=== PATIENT | male | born 1990 | race Hispanic/Latino ===

== ENCOUNTER 2018-10-27 17:27 | Inpatient (IN) | payer OTHER ==
[~2018-10-27] VITALS: Ht 172.7 cm; Wt 84.2 kg
[2018-10-27 18:08] LABS: BASOPHILS % (AUTO) 2.8 % (0.0-5.0); EOSINOPHILS % (AUTO) 8.1 % (0.0-8.0); HEMATOCRIT 46.7 % (42-54); LYMPHOCYTES % (AUTO) 35.1 % (21.0-51.0); MEAN CORPUSCULAR HGB CONC 34.3 g/dL (32.0-36.0); MEAN CORPUSCULAR VOLUME 90.3 fL (79-99); MONOCYTES % (AUTO) 7.6 % (3.0-13.0); NEUTROPHILS % (AUTO) 46.4 % (40.0-77.0); PLATELET COUNT (AUTO) 232 K/uL (130-400); RED BLOOD CELL COUNT(AUTO) 5.18 MIL/uL (4.50-6.20); RED CELL DISTRIBUTION WIDTH 13.3 % (11.0-15.5); WHITE BLOOD COUNT (AUTO) 5.2 K/uL (4.8-10.8)
[2018-10-27 18:17] LABS: ALBUMIN 4.2 g/dL (3.5-5.0); BILIRUBIN,TOTAL 0.2 mg/dL (0.2-1.0); POTASSIUM 3.6 mmol/L (3.5-5.1); TOTAL PROTEIN, SERUM 7.5 g/dL (6.0-8.3)
[2018-10-27 18:27] LABS: CREATININE 0.9 mg/dL (0.5-1.5)
[2018-10-27] MEDS ORDERED: LORAZEPAM 2 MG/ML 1 ML VIAL ONE (19:06)
[2018-10-27] MEDS: SODIUM CHLORIDE 0.9% 1000ML 1,000 ML IV SCH (19:35)
[2018-10-27] MEDS ORDERED: LORAZEPAM 2 MG/ML 1 ML VIAL IVP PRN (19:45)
[2018-10-27] MEDS ORDERED: MORPHINE SULFATE 2 MG/ML 1ML SYG IV PRN (19:45)
[2018-10-27] MEDS ORDERED: ACETAMINOPHEN 325 MG TAB PO PRN (19:45)
[2018-10-27] MEDS ORDERED: ONDANSETRON HCL 4 MG/2 ML VIAL IV PRN (19:45)
[2018-10-27 20:55] LABS: APPEARANCE,URINE Turbid (CLEAR); BILIRUBIN,URINE Negative (NEGATIVE); COLOR,URINE Yellow (YELLOW); GLUCOSE, URINE (UA) Negative (NEGATIVE); KETONES,URINE Negative (NEGATIVE); LEUKOCYTE ESTERASE ,URINE Negative (NEGATIVE); NITRATE,URINE Negative (NEGATIVE); OCCULT BLOOD,URINE Negative (NEGATIVE); PH,URINE 8.5 (5.0-8.0); PROTEIN,URINE Negative (NEGATIVE); UROBILINOGEN,URINE 0.2 mg/dL (0.2-1.0)
[2018-10-27] MEDS: LEVETIRACETAM 250 MG TABLET PO SCH (21:00)
[2018-10-27 21:05] LABS: AMORPHOUS SEDIMENT,UR Many /LPF (None Seen)
[2018-10-27 21:06] LABS: BACTERIA,URINE Moderate /HPF (None Seen); SQUAMOUS EPITHELIAL CELL,UR 0-2 /HPF (0-2)
[2018-10-27 21:07] LABS: MUCUS,URINE Few LPF (None Seen)
[2018-10-27 21:08] LABS: RBC,URINE 0-1 /HPF (0-1)
[2018-10-27 21:12] LABS: AMPHET/METH SCREEN,URINE NEGATIVE (NEGATIVE); BARBITURATE SCREEN, URINE NEGATIVE (NEGATIVE); BENZODIAZEPINES SCREEN,URINE NEGATIVE (NEGATIVE); CANNABINOID SCREEN,URINE POSITIVE (NEGATIVE); COCAINE SCREEN,URINE NEGATIVE (NEGATIVE); OPIATE SCREEN,URINE NEGATIVE (NEGATIVE); PHENCYCLIDINE SCREEN,URINE NEGATIVE (NEGATIVE)
[2018-10-28] VITALS (8 sets, daily range): BP systolic 122–149; BP diastolic 62–97
--- NOTE | 2018-10-28 01:25 | NUR ---
ADMIT PT ADMITTED TO ROOM 415,AAOX3. NO DISTRESS NOTED. NO COMPLAINTS VERBALIZED. V/S MONITORED, STABLE. ADMISSION CARED ONE. ADMISSION DATA BASE COMPLETED. ORIENTED TO ROOM AND UNIT. FOR MORE CARE AND MANAGEMENT. Addendum: 10/28/18 at 0230 by JUAN PAGAN RN RN Amended: Links added.
[2018-10-28] MEDS: SODIUM CHLORIDE 0.9% 1000ML 1,000 ML IV SCH ×2 (01:56→04:37)
--- NOTE | 2018-10-28 05:56 | NUR ---
ROUNDS PT RESTING WELL, FAIRLY ASLEEP. NO SEIZURE ACTIVITY SINCE ADMITTED TO THE FLOOR. KEPT UNDISTURBED FOR NOW. KEPT NPO FOR MRI TODAY. FOR MORE CARE.
[2018-10-28] MEDS ORDERED: GADODIAMIDE 10 MMOL/20 ML ML IV ONE (08:45)
--- NOTE | 2018-10-28 10:22 | NUR ---
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 Pt reports that he is now unemployed. Pt denies any addiction or need for referral for intervention, and refused resources offered. Pt denies any other type of substance abuse.
[2018-10-28] MEDS: PANTOPRAZOLE SODIUM 40 MG TABLET.DR PO SCH (10:42)
[2018-10-28] MEDS: ENOXAPARIN SODIUM 40 MG/0.4 ML SYRINGE SQ SCH (10:42)
[2018-10-28] MEDS: LEVETIRACETAM 250 MG TABLET PO SCH (10:42)
--- NOTE | 2018-10-28 10:43 | NUR ---
ROUNDS VISITED WITH PATIENT. POC DISCUSSED. NEW ORDERS RECEIVED AND CARRIED OUT. PATIENT AND FAMILY AT BEDSIDE AWARE. NO QUESTIONS OR CONCERNS VOICED AT THIS TIME. VITALS STABLE. AFEBRILE. RESP EVEN AND UNLABORED. NO SOB NOTED. UP AD MARY. NS INFUSING AT 100ML/HR. NO SIGNS OF DISTRESS NOTED. CALL LIGHT WITHIN REACH. WILL CONTINUE TO BE OBSERVED. Addendum: 10/28/18 at 1045 by JUSTIN CABRERA RN RN Amended: Links added.
--- NOTE | 2018-10-28 13:26 | NUR ---
COGNITIVE EVAL COMPLETE. COGNITIVE-LINGUISTIC ABILITIES WITHIN FUNCTIONAL LIMITS. PATIENT INFORMATION: Pt IS A 27 YEAR OLD MALE REFERRED FOR A COGNITIVE-LINGUISTIC EVALUATION SECONDARY TO DIAGNOSIS OF NEW ONSET OF SEIZURES. Pt COOPERATIVE DURING THE EVALUATION AND SERVED THE PRIMARY INFORMANT FOR MEDICAL AND SOCIAL HISTORY. Pt WITH NO KNOWN PAST MEDICAL HISTORY. CT OF THE HEAD COMPLETED THIS ADMISSION WITH IMPRESSION OF POSSIBLE TUBEROUS SCLEROSIS. EVALUATION: Pt AAOX3. Pt REQUESTS WANTS AND NEEDS INDEPENDENTLY. Pt INTELLIGIBLE AT 100% ACCURACY TO THE UNFAMILIAR LISTENER. Pt COMMUNICATING AT CONVERSATIONAL LEVEL WITH NO DEFICITS IDENTIFIED AT THIS TIME. Pt COMPLETED COGNITIVE-LINGUISTIC EVALUATION TARGETING: ORIENTATION, ATTENTION/CONCENTRATION, MEMORY (IMMEDIATE, SHORT-TERM AND LONG-TERM), PROBLEM SOLVING, LOGIC/REASONING/INFERENCE, THOUGHT ORGANIZATION, FUNCTIONAL MATH AND TELLING TIME. Pt ABLE TO COMPLETE TASKS WITH CORRECT AND TIMELY ANSWERS TO ALL SECTIONS. G-CODES SPOKEN LANGUAGE EXPRESSION: [id number] Addendum: 10/28/18 at [address] [facility] Amended: Links added.
--- NOTE | 2018-10-28 13:28 | NUR ---
DYSPHAGIA EVAL COMPLETE. -S/S OF ASPIRATION. RECOMMEND REGULAR, THIN LIQUID DIET; PILLS WHOLE WITH LIQUIDS. PATIENT INFORMATION: Pt IS A 27 Y.O. MALE REFERRED FOR A BEDSIDE DYSPHAGIA EVALUATION SECONDARY TO ADMITTING DIAGNOSIS OF NEW ONSET OF SEIZURE. Pt SERVED THE PRIMARY INFORMANT FOR MEDICAL AND SOCIAL HISTORY. Pt WITH NO KNOWN PAST MEDICAL HISTORY. CT OF THE HEAD THIS ADMISSION WITH IMPRESSION FOR POSSIBLE TUBEROUS SCLEROSIS. EVALUATION: SWALLOW FUNCTION AND EFFICIENCY WITHIN FUNCTIONAL LIMITS. ORAL MOTOR STRENGTH, COORDINATION, AND ROM WITHIN FUNCTIONAL LIMITS. LARYNGEAL ELEVATION/EXCURSION STRONG WITH TIMELY PHARYNGEAL RESPONSE. NO OVERT SIGNS OR SYMPTOMS OF ASPIRATION PRESENT AT BEDSIDE. VOCAL QUALITY CLEAR WITH NO THROAT CLEAR OR COUGH RESPONSE PRESENT. RECOMMENDATIONS: 1. REGULAR TEXTURE, THIN LIQUID DIET; PILLS WHOLE WITH LIQUIDS. 2. COMPENSATORY STRATEGIES (PROPHYLAXIS): *SEATED AT 90 DEGREE ANGLE G-CODES SWALLOWING: [id number] Addendum: 10/28/18 at 1330 by ELY STEVENS [facility] Amended: Links added.
--- NOTE | 2018-10-28 15:00 | NUR ---
CALLED FOR PATIENT'S MRI RESULTS. RESULTS GIVEN TO MD. NEW ORDERS RECEIVED TO CONSULT NEUROSURGEON. WAS CALLED AND AWARE. DR. VALDOVINOS WILL BE IN TO SEE PATIENT IN AM. PATIENT AWARE. WILL CONTINUE TO BE OBSERVED. SEIZURE PRECAUTIONS IN PLACE. CALL LIGHT WITHIN REACH. WILL CONTINUE TO BE OBSERVED. Addendum: 10/28/18 at 1950 by JUSTIN CABRERA RN RN Amended: Links added.
[2018-10-28] MEDS: LEVETIRACETAM 500 MG TABLET PO SCH (20:35)
[2018-10-29 04:00] VITALS: BP 109/58
[2018-10-29 04:40] LABS: MEAN CORPUSCULAR HEMOGLOBIN 31.2 pg (27.0-33.0); MEAN CORPUSCULAR HGB CONC 35.1 g/dL (32.0-36.0); MEAN CORPUSCULAR VOLUME 88.8 fL (79-99); NUCLEATED RED BLOOD CELLS 0.1 % (0.0-0.19); PLATELET COUNT (AUTO) 251 K/uL (130-400); RED BLOOD CELL COUNT(AUTO) 5.07 MIL/uL (4.50-6.20); RED CELL DISTRIBUTION WIDTH 13.3 % (11.0-15.5)
[2018-10-29 08:00] VITALS: BP 111/70
[2018-10-29] MEDS: PANTOPRAZOLE SODIUM 40 MG TABLET.DR PO SCH (08:54)
[2018-10-29] MEDS: LEVETIRACETAM 500 MG TABLET PO SCH (08:54)
[2018-10-29] MEDS: ENOXAPARIN SODIUM 40 MG/0.4 ML SYRINGE SQ SCH (08:59)
[2018-10-29 12:00] VITALS: BP 134/82
--- NOTE | 2018-10-29 13:38 | NUR ---
CM IA AND POSS REFERRAL \\MET W PT AND SPOUSE AND CHILD, DC ORDER, PT AAOX3, LIVES W FAMILY, NOT CURRENTLY EMPLOYED, NO INSURACNE POSS REFERRAL BY [facility] TO [facility] FROM PATIENT DCP HOME TO FOLLOW UP WITH DR VALDOVINOS AT APPOINTMENT IN 1 TO 2 WEEKS, CALL TO ABHINAV VALDOVINOS, ASKED IF WANTED REFERRAL TO BE INITIATIED, STATES YES GO AHEAD, JUST WAITING ON THE NAME OF THE PHYSICIAN. WILL PREPARE PACKET TO FAX ON WEDNESDAY 11/01 PT VERBALIZED UNDERSTANDING Addendum: 11/01/18 at 1341 by KAIN NEWMAN RN CM Amended: Links added.
[2018-10-29] MEDS ORDERED: LEVE500T8 PO (13:43)
== END 2018-10-29 17:02 | disposition home or self-care (01) | DRG 100 ==
LOC: EDH 17:27 → EDHIP 17:28 → 4CH 23:21
PROVIDERS: ADMIT Internal Medicine; ATTEND Internal Medicine
DX: G40.909 Epilepsy, unspecified, not intractable, without status epilepticus (principal); Q28.2 Arteriovenous malformation of cerebral vessels; Q85.1 Tuberous sclerosis; F05 Delirium due to known physiological condition; F12.90 Cannabis use, unspecified, uncomplicated; D18.00 Hemangioma unspecified site; G31.9 Degenerative disease of nervous system, unspecified; Z82.49 Family history of ischemic heart disease and other diseases of the circulatory system
CPT/HCPCS: 36415; 70450; 70553; 80048; 80053; 80305; 81001; 85025; 85027; 92522; 92610; A9579; G0378; J1650; J2060; J7030

== ENCOUNTER 2019-10-16 13:49 | Emergency (ER) | payer MEDICAID, OTHER ==
[~2019-10-16 13:49] MED LIST: LEVE-43 PO
[2019-10-16 14:20] LABS: BASOPHILS % (AUTO) 0.9 % (0.0-5.0); EOSINOPHILS % (AUTO) 9.1 % (0.0-8.0); HEMATOCRIT 45.3 % (42-54); LYMPHOCYTES % (AUTO) 17.8 % (21.0-51.0); MEAN CORPUSCULAR HEMOGLOBIN 30.3 pg (27.0-33.0); MEAN CORPUSCULAR HGB CONC 34.9 g/dL (32.0-36.0); MEAN CORPUSCULAR VOLUME 86.9 fL (79-99); MONOCYTES % (AUTO) 6.3 % (3.0-13.0); NEUTROPHILS % (AUTO) 65.6 % (40.0-77.0); PLATELET COUNT (AUTO) 242 K/uL (130-400); RED BLOOD CELL COUNT(AUTO) 5.21 MIL/uL (4.50-6.20)
[2019-10-16 14:32] LABS: CREATININE 0.9 mg/dL (0.5-1.5); POTASSIUM 3.4 mmol/L (3.5-5.1)
[2019-10-16] MEDS ORDERED: LEVETIRACETAM 500 MG/5 ML SD VIAL IV ONE (14:35)
[2019-10-16 14:36] LABS: ALBUMIN 4.2 g/dL (3.5-5.0); BILIRUBIN,TOTAL 0.8 mg/dL (0.2-1.0)
[2019-10-16] MEDS ORDERED: SODIUM CHLORIDE 0.9% 100 ML IV ONE (14:36)
[2019-10-16] MEDS ORDERED: POTASSIUM CHLORIDE 20 MEQ ERTAB PO ONE (15:19)
== END 2019-10-16 15:33 | disposition home or self-care (01) ==
LOC: EDH 13:49
DX: G40.909 Epilepsy, unspecified, not intractable, without status epilepticus (principal); E87.6 Hypokalemia; Z79.899 Other long term (current) drug therapy
CPT/HCPCS: 36415; 80053; 85025; 96365; 99284; J1953

== ENCOUNTER 2023-12-05 13:58 | Emergency (ER) | payer MEDICAID, OTHER ==
[~2023-12-05] VITALS: Ht 172.7 cm; Wt 81.6 kg
[2023-12-05 14:50] LABS: BASOPHILS # (AUTO) 0.08 K/uL (0.00-0.20); BASOPHILS % (AUTO) 0.6 % (0.0-5.0); EOSINOPHILS # (AUTO) 0.46 K/uL (0.00-0.70); EOSINOPHILS % (AUTO) 3.6 % (0.0-8.0); HEMATOCRIT 47.5 % (42-54); IMMATURE GRANULOCYTE ABSOLUTE 0.05 K/uL (0-1); LYMPHOCYTES # (AUTO) 1.2 K/uL (1.0-4.8); LYMPHOCYTES % (AUTO) 9.3 % (21.0-51.0); MEAN CORPUSCULAR HEMOGLOBIN 31.4 pg (27.0-33.0); MEAN CORPUSCULAR HGB CONC 35.6 g/dL (32.0-36.0); MEAN CORPUSCULAR VOLUME 88.3 fL (79-99); MONOCYTES # (AUTO) 0.6 K/uL (0.1-1.0); MONOCYTES % (AUTO) 5.1 % (3.0-13.0); NEUTROPHILS # (AUTO) 10.2 K/uL (1.8-7.7); PLATELET COUNT (AUTO) 216 K/uL (130-400); RED BLOOD CELL COUNT(AUTO) 5.38 MIL/uL (4.50-6.20); RED CELL DISTRIBUTION WIDTH 12.4 % (11.0-15.5); WHITE BLOOD COUNT (AUTO) 12.6 K/uL (4.8-10.8)
[2023-12-05 14:57] LABS: CREATININE 0.9 mg/dL (0.5-1.3); POTASSIUM 3.8 mmol/L (3.5-5.1)
[2023-12-05 16:32] LABS: ALANINE AMINOTRANSFERASE 36 U/L (12-78); ALBUMIN 4.5 g/dL (3.5-5.0); ALCOHOL, BLOOD < 3 mg/dL (0-10); ASPARTATE AMINOTRANSFERASE 21 U/L (10-37); BILIRUBIN,DIRECT 0.1 mg/dL (0.0-0.3); BILIRUBIN,TOTAL 0.9 mg/dL (0.2-1.0); TOTAL PROTEIN, SERUM 8.1 g/dL (6.0-8.3)
[2023-12-05] MEDS: 0.9%NACL 1000ML 1,000 ML IV ONE (16:49)
[2023-12-05] MEDS: METOCLOPRAMIDE 10 MG/2 ML VIAL IVP ONE (16:51)
[2023-12-05] MEDS: FAMOTIDINE 20MG VIAL IV ONE (16:51)
[2023-12-05 17:56] LABS: APPEARANCE,URINE CLEAR (CLEAR); BILIRUBIN,URINE NEGATIVE (NEGATIVE); COLOR,URINE LIGHT-YELLOW (YELLOW); GLUCOSE, URINE (UA) TRACE mg/dL (NEGATIVE); KETONES,URINE 10 mg/dL (NEGATIVE); LEUKOCYTE ESTERASE ,URINE NEGATIVE Leu/uL (NEGATIVE); NITRATE,URINE NEGATIVE (NEGATIVE); OCCULT BLOOD,URINE NEGATIVE (NEGATIVE); PH,URINE 8.5 (5.0-8.0); PROTEIN,URINE 30 mg/dL (NEGATIVE); UROBILINOGEN,URINE 0.2 mg/dL (0.2-1.0)
[2023-12-05 17:57] LABS: ADD UA MICROSCOPIC YES
[2023-12-05 17:58] LABS: MUCUS,URINE RARE LPF (None Seen); WBC,URINE 0-1 /HPF (0-1)
[2023-12-05 18:14] LABS: AMPHET/METH SCREEN,URINE NEGATIVE (NEGATIVE); BARBITURATE SCREEN, URINE NEGATIVE (NEGATIVE); BENZODIAZEPINES SCREEN,URINE NEGATIVE (NEGATIVE); CANNABINOID SCREEN,URINE POSITIVE (NEGATIVE); COCAINE SCREEN,URINE NEGATIVE (NEGATIVE); OPIATE SCREEN,URINE NEGATIVE (NEGATIVE); PHENCYCLIDINE SCREEN,URINE NEGATIVE (NEGATIVE)
[2023-12-05 18:50] VITALS: BP 145/84; PULSE 74; RESP 18; O2SAT 98
== END 2023-12-05 18:55 | disposition home or self-care (01) ==
LOC: EDH 13:58
DX: F12.90 Cannabis use, unspecified, uncomplicated (principal); F41.9 Anxiety disorder, unspecified; Z79.899 Other long term (current) drug therapy
CPT/HCPCS: 99284; 96374; 96361; 96375; 80076; 80048; 80305; 83690; 85025; 36415; 81001; J3490; J7030; J2765